=== PATIENT | female | born 1965 | race African-American/Black ===

== ENCOUNTER 2016-11-02 15:37 | Emergency (ER) | payer MEDICARE | END 2016-11-02 16:08 | disposition home or self-care (01) | LOC: MADERS 15:37 | DX: S20.219A Contusion of unspecified front wall of thorax, initial encounter (principal); D64.9 Anemia, unspecified; G40.909 Epilepsy, unspecified, not intractable, without status epilepticus; E11.9 Type 2 diabetes mellitus without complications; E78.2 Mixed hyperlipidemia; I10 Essential (primary) hypertension; F41.9 Anxiety disorder, unspecified; Z79.4 Long term (current) use of insulin; Z79.02 Long term (current) use of antithrombotics/antiplatelets; Z79.899 Other long term (current) drug therapy; V49.9XXA Car occupant (driver) (passenger) injured in unspecified traffic accident, initial encounter | CPT/HCPCS: 99283 ==

== ENCOUNTER 2017-08-03 18:57 | Emergency (ER) | payer MEDICARE, MEDICAID ==
[~2017-08-03 18:57] MED LIST: Nitroglycerin 0.4 MG TAB (25 Tab Bottle) ONE
[2017-08-03] MEDS ORDERED: Aspirin 325 MG TAB ONE (19:19)
--- NOTE | 2017-08-03 19:37 | RAD ---
PORTABLE CHEST: 08/03/17 HISTORY: Chest pain. The lung gusman are clear of infiltrate. Heart and mediastinum unremarkable. IMPRESSION: No acute abnormality. POS: [facility]
[2017-08-03 20:04] LABS: #Basophils 0.1 thou/uL (0.0-0.2); #Eosinphils 0.1 thou/uL (0.0-0.7); #Lymphocytes 2.4 thou/uL (1.20-3.40); #Monocytes 0.4 thou/uL (0.11-0.59); #Neutrophils 2.7 thou/uL (1.40-6.50); %Basophils 1.4 % (0.0-1.0); %Lymphocytes 42.8 % (21.0-51.0); %Monocytes 7.3 % (0.0-10.0); %Neutrophils 47.6 % (42.0-75.0); Hemoglobin 10.4 g/dL (12.0-16.0); Mean Corpuscular HGB CONC 31.9 g/dL (32.0-36.0); Mean Corpuscular Hemoglobin 31.1 pg (27.0-31.0); Mean Corpuscular Volume 97.5 fl (81.0-99.0); Mean Platelet Volume 6.8 fL (7.4-10.4); Platelet Count 259 thou/uL (130-400); RBC Distribution Width 12.7 % (11.5-14.5); Red Blood Cell (RBC) Count 3.36 mill/uL (4.20-5.40); White Blood Cell (WBC) Count 5.7 thou/uL (4.8-10.8)
[2017-08-03 20:06] LABS: PTT 27.1 SEC (22.9-36.1); Prothrombin Time 13.2 SEC (12.0-14.7)
[2017-08-03 20:14] LABS: Lactic Acid 1.2 mmol/L (0.5-2.2)
[2017-08-03 20:19] LABS: ALT (SGPT) 17 U/L (8-55); AST (SGOT) 25 U/L (5-34); Albumin 3.8 g/dL (3.5-5.0); Alkaline Phosphatase 133 U/L (40-150); Anion Gap 15 mmol/L (10-20); BUN (Urea Nitrogen) 16 mg/dL (9.8-20.1); Bilirubin, Total Less than 0.2 mg/dL (0.2-1.2); CK (CPK) 125 U/L (29-168); Calc. Creatinine Clearance 0 mL/min (70-130); Calcium 8.6 mg/dL (7.8-10.44); Carbon Dioxide 19 mmol/L (22-29); Chloride 113 mmol/L (98-107); Estimated GFR-MDRD 89; Glucose 94 mg/dL (70-105); Magnesium 2.3 mg/dL (1.6-2.6); Protein, Total 6.8 g/dL (6.0-8.3); Sodium 143 mmol/L (136-145)
[2017-08-03 20:20] LABS: CKMB 0.5 ng/mL (0-6.6); Troponin I Less than 0.010 ng/mL (< 0.028)
[2017-08-03 20:38] LABS: Bilirubin Negative (Negative); Blood, Urine Negative (Negative); Clarity Clear (Clear); Glucose, Urine (Dipstick) Negative (Negative); Leukocyte Negative (Negative); Nitrite Negative (Negative); Protein, Urine (Dipstick) Negative (Neg-Trace); Urobilinogen 0.2 mg/dL (0.2-1.0); pH, Urine 5.5 (5.0-9.0)
[2017-08-03 20:41] LABS: Specific Gravity, Urine 1.027 (1.002-1.036)
[2017-08-03 20:47] LABS: Bacteria/HPF None Seen HPF (None Seen); Other Microscopic Description Trace - Mucus; RBC/HPF 0-3 HPF (0-3); Squamous Epithelial 0-3 HPF (0-3); WBC/HPF 0-3 HPF (0-3)
== END 2017-08-03 21:24 | disposition short-term general hospital (02) ==
LOC: MADERS 18:57
DX: I20.0 Unstable angina (principal); D64.9 Anemia, unspecified; E11.9 Type 2 diabetes mellitus without complications; G40.309 Generalized idiopathic epilepsy and epileptic syndromes, not intractable, without status epilepticus; E78.5 Hyperlipidemia, unspecified; F41.9 Anxiety disorder, unspecified; I10 Essential (primary) hypertension
CPT/HCPCS: 71045; 80053; 81001; 82550; 82553; 83605; 83735; 83880; 84484; 85025; 85610; 85730; 87086; 93005; 94760; 96360

== ENCOUNTER 2018-01-17 12:43 | Emergency (ER) | payer MEDICARE, OTHER ==
--- NOTE | 2018-01-17 13:46 | RAD ---
THREE VIEWS LEFT SHOULDER: History: Pain x 1 month. Comparison: None. FINDINGS: The glenohumeral joint space is preserved. No fracture or dislocation. IMPRESSION: No fracture or dislocation. No significant degenerative change. POS: [facility]
--- NOTE | 2018-01-17 13:47 | RAD ---
TWO VIEW CHEST: Indication: Left shoulder pain. No known injury. FINDINGS: There is no evidence of consolidation, effusion, or pneumothorax. Cardiac silhouette is normal in siz e. Imaged osseous structures are intact. IMPRESSION: No focal consolidation. POS: [facility]
== END 2018-01-17 14:30 | disposition home or self-care (01) ==
LOC: MADERS 12:43
DX: M25.512 Pain in left shoulder (principal); D64.9 Anemia, unspecified; G40.909 Epilepsy, unspecified, not intractable, without status epilepticus; E78.1 Pure hyperglyceridemia; I10 Essential (primary) hypertension; F41.9 Anxiety disorder, unspecified; E11.9 Type 2 diabetes mellitus without complications; Z79.4 Long term (current) use of insulin; Z79.899 Other long term (current) drug therapy
CPT/HCPCS: 71046; 93005

== ENCOUNTER 2018-01-21 09:09 | Outpatient (CLI) | payer MEDICARE, OTHER ==
--- NOTE | 2018-01-21 11:46 | RAD ---
CERVICAL SPINE SERIES 7 VIEWS: INDICATION: Neck pain. FINDINGS: There are moderate multilevel degenerative changes of the cervical spine. By neutral imaging, there is a slight degree of retrolisthesis of C3-4, C4-5, and C5-6, some of which may be accentuated by ove rhanging posterior osteophytosis. Oblique views reveal mild osseous encroachment upon bilateral cerv ical spine neural foramen at the mid to lower aspect. The lateral masses of C1 maintain appropriate alignment. There is no discrete dens fracture within limitations as portions of the odontoid process are obscured by overlying skull base structures. There is mild multilevel facet sclerosis. IMPRESSION: Multilevel degenerative change of the cervical spine. If there is persistent concern for radicular s ymptoms, consider MRI as further assessment. POS: [facility]
== END 2018-01-21 09:10 | disposition home or self-care (01) ==
LOC: MADRAD 09:09
PROVIDERS: ATTEND Family Medicine
DX: M47.22 Other spondylosis with radiculopathy, cervical region (principal); M54.2 Cervicalgia
CPT/HCPCS: 72052

== ENCOUNTER 2018-05-10 11:23 | Emergency (ER) | payer MEDICARE, MEDICAID | END 2018-05-10 12:02 | disposition home or self-care (01) | LOC: MADERS 11:23 | DX: J11.1 Influenza due to unidentified influenza virus with other respiratory manifestations (principal); D64.9 Anemia, unspecified; G40.909 Epilepsy, unspecified, not intractable, without status epilepticus; E11.9 Type 2 diabetes mellitus without complications; Z79.4 Long term (current) use of insulin; E78.2 Mixed hyperlipidemia; Z86.73 Personal history of transient ischemic attack (TIA), and cerebral infarction without residual deficits; F41.9 Anxiety disorder, unspecified | CPT/HCPCS: 87804; 99283 ==